=== PATIENT | male | born 1980 | race Caucasian/White ===

== ENCOUNTER 2020-06-19 08:22 | Emergency (ER) | payer SELFPAY ==
[2020-06-19 08:25] VITALS: BP 146/89; PULSE 95; RESP 95; TEMP 36.9; O2SAT 95
--- NOTE | 2020-06-19 08:45 | ED_ITS ---
HPI - Skin/Abscess/Foreign Bdy General Chief complaint: Skin/Abscess/Foreign Body Stated complaint: [place] on lip x7 days Time Seen by Provider: 06/19/20 08:31 Source: patient Mode of arrival: Ambulatory Limitations: no limitations History of Present Illness HPI narrative: Patient is a 40-year-old male here for evaluation of a lump hand painful area on his lower lip on the left side. He states that this incident has been there for the past couple days although he has had 2 prior incidences of pain in this area. He states that this is the worst 1. He has not been seen by Dental prior to this. He has no actual tooth pain. He states the 2nd time this happened did drain a green material. After the prior to times there was a lump in this area that was not painful. He does use occasional chewing tobacco but has not used this in greater than 6 months. He does not see a dentist on a regular basis. No fevers. No problems swallowing. Has not tried anything for symptoms prior to arrival. Related Data Home Medications Medication Instructions Recorded Confirmed HYDROCODONE/ACET 5/500 - 0 PO * [facility] DOSE/FREQUENCY #0 10/07/07 (Hydrocodon-Acetaminophen 5-500) IBUPROFEN (Motrin / Advil) 0 PO * UK DOSE/FREQUENCY #0 10/07/07 Previous Rx's Medication Instructions Recorded penicillin V potassium 500 mg PO QID 10 Days #40 tab 06/19/20 Review of Systems Constitutional Constitutional: Denies fatigue and Denies fever(s) ENT Comments: Pain left lower lip Cardiovascular Cardiovascular: Denies dyspnea Respiratory Respiratory: Denies cough and Denies dyspnea Integumentary/Breasts Skin/Breast: Denies lesions and Denies rash Neurologic Neurologic: Denies behavioral changes Psychiatric Psychiatric: Denies behavioral changes Endocrine Endocrine: Denies fatigue Hematologic/Lymphatic Hematologic/Lymphatic: Denies easy bleeding and Denies easy bruising Allergic/Immunologic Allergic/Immunologic: Denies urticaria Patient History Medical History Foreign body of right eye Social History Smoking Status: Current every day smoker Smoking Status: Current every day smoker alcohol intake frequency: 0-2 drinks per day Substance Use Type: marijuana Exam Initial Vital Signs Initial Vital Signs: Vital Signs Temperature 98.5 F 06/19/20 08:25 Pulse Rate 95 H 06/19/20 08:25 Respiratory Rate 95 H 06/19/20 08:25 Blood Pressure 146/89 H 06/19/20 08:25 Pulse Oximetry 95 06/19/20 08:25 Const General: cooperative, comfortable and well developed Limitations: mental status not altered HENMT Mouth: tongue normal, lip abnormal, No muffled voice and other (1 cm x 1 cm lump left lower lip) Teeth and gingiva: fair dentition Throat: no postnasal drainage and no uvular edema Skin Lesions: no lesions Rashes: no rashes Extrem General: capillary refill normal Psych Appearance: grossly normal and well kempt Course Orders Ordered: Discontinued Medications Prednisone (Prednisone 20 Mg Tablet) 40 mg PO NOW ONE Stop: 06/19/20 08:32 Last Admin: 06/19/20 08:33 Dose: Not Given Documented by: GREG Vital Signs Vital signs: Vital Signs - 8 hr 06/19/20 08:25 Temperature 98.5 F Pulse Rate 95 H Respiratory Rate 95 H Blood Pressure 146/89 H Pulse Oximetry 95 MDM - Skin/Abscess/Foreign Bdy MDM Narrative Medical decision making narrative: No respiratory distress. He does have a 1 cm x 1 cm mass on the left lower lip. Given his history of 2 prior episodes of this and the fact that there is a small nodule in this area when he is not having discomfort makes me somewhat concerned that this is a cyst and not an abscess. There is some redness around the area and the fact that it is extremely tender will start on antibiotics to see if this does not improve his symptoms. He was instructed that he needed contacted dental provider for most likely definitive treatment and removal of the cystic structure. He has no fevers. Can use Tylenol/ibuprofen for any discomfort. Discharge Plan Departure Patient Disposition: Home Clinical Impression: Lip cyst Activity Restrictions/Additional Instructions: [facility] [place]. I do recommend that you contact the [facility] dental providers in [place] as this most likely will need some sort of surgical treatment. You can take Tylenol and/or ibuprofen for any discomfort. Return to the emergency department for any new or worsening symptoms Prescriptions: New penicillin V potassium 500 mg tablet 500 mg PO QID 10 Days Qty: 40 RF: 0 No Action HYDROCODONE/ACET 5/500 - (Hydrocodon-Acetaminophen 5-500) 0 PO * UK DOSE/FREQUENCY Qty: 0 RF: 0 IBUPROFEN (Motrin / Advil) 0 PO * UK DOSE/FREQUENCY Qty: 0 RF: 0
== END 2020-06-19 08:58 | disposition home or self-care (01) ==
PROVIDERS: Emergency Provider Emergency Medicine
DX: K13.0 Diseases of lips (principal)
CPT/HCPCS: 99281

== ENCOUNTER 2021-06-02 09:19 | Emergency (ER) | payer OTHER, SELFPAY ==
[2021-06-02 09:31] VITALS: BP 169/88; PULSE 99; RESP 20; TEMP 36.2; O2SAT 94; BMI 23.0
[2021-06-02] MEDS: KETOROLAC 30 MG/ML VIAL IM (11:24)
[2021-06-02 11:54] VITALS: BP 163/85; PULSE 95; RESP 16; O2SAT 100
== END 2021-06-02 11:58 | disposition home or self-care (01) ==
PROVIDERS: Emergency Provider Emergency Medicine
DX: Z53.21 Procedure and treatment not carried out due to patient leaving prior to being seen by health care provider (principal); M54.16 Radiculopathy, lumbar region
CPT/HCPCS: 99283; J1885

== ENCOUNTER 2021-06-19 06:33 | Emergency (ER) | payer OTHER, SELFPAY ==
--- NOTE | 2021-06-19 06:56 | ED.BACK ---
HPI - Back Pain/Injury General Chief Complaint: Back Pain/Injury Stated Complaint: low back pain x3 days Time Seen by Provider: 06/19/21 06:47 History of Present Illness HPI Narrative: 41-year-old male daily smoker with long history of low back pain related to an L and I injury presents with increasing pain in his lower back with numbness and tingling in his left leg. It sometimes is hard for him to move any questions whether it is weak versus severely painful. He denies any recent trauma or injury. Denies any loss of control of bowel or bladder. He has no fever or chills and denies the use of blood thinners. He was seen and evaluated here about 2 weeks ago Related Data Previous Rx's Medication Instructions Recorded diazepam 5 mg tablet 5 mg PO TID PRN #14 tab 06/02/21 diazepam 5 mg tablet (Valium) 5 mg PO BID-QID PRN #10 tab 06/19/21 gabapentin 300 mg capsule 300 mg PO BEDTIME #14 cap 06/19/21 ketorolac 10 mg tablet 10 mg PO Q6H PRN #14 tab 06/19/21 methylprednisolone 4 mg tablets in See Rx Instructions .ROUTE 06/19/21 a dose pack (Medrol (Edson)) .COMPLEX #21 ea Allergies Allergy/AdvReac Type Severity Reaction Status Date / Time No Known Drug Allergies Allergy Verified 06/02/21 09:35 Patient History Medical History Foreign body of right eye Social History Smoking Status: Current every day smoker Smoking Status: Current every day smoker alcohol intake frequency: 0-2 drinks per day Substance Use Type: marijuana Exam Initial Vital Signs Initial Vital Signs: Vital Signs Temperature 98 F 06/19/21 07:10 Pulse Rate 94 H 06/19/21 07:10 Respiratory Rate 18 06/19/21 07:10 Blood Pressure 171/75 H 06/19/21 07:10 Pulse Oximetry 98 06/19/21 07:10 Course Orders Ordered: ED Orders 06/19/21 07:13 MR lumbar spine wo con Stat Discontinued Medications Gabapentin (Gabapentin 300 Mg Capsule) 300 mg PO NOW ONE Stop: 06/19/21 08:32 Ketorolac Tromethamine (Ketorolac 30 Mg/Ml Vial) 30 mg IM NOW ONE Stop: 06/19/21 07:42 Last Admin: 06/19/21 07:48 Dose: 30 mg Documented by: Prednisone (Prednisone 20 Mg Tablet) 40 mg PO NOW ONE Stop: 06/19/21 08:32 Vital Signs Vital signs: Vital Signs - 8 hr 06/19/21 07:10 Temperature 98 F Pulse Rate 94 H Respiratory Rate 18 Blood Pressure 171/75 H Pulse Oximetry 98 MDM - Back Pain/Injury Imaging Data Lumbar MRI: Radiologist's Impression: Launch?Image [address] [address] Magnetic Resonance Report Signed Patient: Dakota Nielsen MR#: [id number] : 1980 Acct:[id number] Age/Sex: 41 / M Date of Service: 06/19/21 Loc: ED Accession Number: [id number] ?? Procedure: MR lumbar spine wo con Ordering Provider: Rodger Naranjo D.O. PROCEDURE:? MR LUMBAR SPINE WO CON ? INDICATIONS:? severe pain, numbness, occasional leg weakness ? TECHNIQUE:? Noncontrast sagittal T1 spin echo and T2 fast echo, sagittal STIR, axial T1 and T2 fast spin echo through the lumbar spine.? In cases with scoliosis, additional coronal T2 fast spin echo may be performed.? ? COMPARISON:? [facility], MR, L-SPINE WITHOUT CONTRAST, 09/05/2007, 16:12. ? FINDINGS:? Image quality:? Excellent.? ? Alignment and Curvature:? No plain films are available for comparison, for numbering purposes.? Thus, for the purposes of this examination, 5 lumbar type vertebral bodies will be presumed, as denoted on the montage panel.? This should be confirmed and correlated with plain films, prior to any lumbar spinal intervention.? There is loss of normal lumbar lordosis.? Mild grade 1 retrolisthesis of L1 on L2 , L4 on L5, and L5 on S1. ? Bone Marrow:? Marrow is of normal overall signal.? No acute vertebral body compression fractures.? Mild reactive signal within the endplates adjacent to the T11-T12, T12-L1, L1-L2, L4-L5, and L5-S1 intervertebral discs. ? Spinal Cord:? Conus medullaris terminates at the L1-L2 disc space level.? Visualized cord demonstrates normal signal and size.? ? Paraspinous Soft Tissues:? No paravertebral masses.? ? T12-L1:? Severe disc height loss and desiccation.? Mild diffuse disc bulge.? Mild epidural lipomatosis.? Mild canal stenosis.? No foraminal stenosis.? No significant change. ? L1-L2:? Mild disc height loss and desiccation.? Mild diffuse disc bulge with superimposed left paracentral protrusion.? Mild facet and ligamentum flavum hypertrophy.? Mild epidural lipomatosis.? Increased, mild canal stenosis.? No foraminal stenosis. ? L2-L3:? Normal appearance.? ? L3-L4:? Normal appearance.? ? L4-L5:? Mild disc height loss and desiccation.? Mild diffuse disc bulge.? Mild facet and ligamentum flavum hypertrophy.? Mild epidural lipomatosis.? Mild canal stenosis.? Mild bilateral foraminal stenosis.? No significant change. ? L5-S1:? Mild disc height loss and desiccation.? Mild diffuse disc bulge with small superimposed right paracentral protrusion.? Mild canal stenosis.? Mild bilateral foraminal stenosis.? Disc protrusion abuts the right S1 nerve root within the lateral recess. ? ? IMPRESSION:? 1. Multilevel degenerative disc and facet disease, as well as ligamentum flavum hypertrophy and epidural lipomatosis. 2. Mild multilevel canal and foraminal stenosis. 3. L5-S1 disc protrusion abuts the right S1 nerve root within the lateral recess. Recommend correlation with clinical symptoms to ascertain relevance of this finding. 4. 5 lumbar type vertebral bodies were presumed for the current report.? Plain films of the lumbar spine are recommended for confirmation, prior to any lumbar spinal intervention. ? Dictated by: Carolee Del Rosario M.D. on 06/19/2021 at 8:13 ? ? Approved by: Carolee Del Rosario M.D. on 06/19/2021 at 8:17 ? Discharge Plan Departure Patient Disposition: Home Clinical Impression: Acute lumbar radiculopathy Instructions: DI for Lumbar Radiculopathy Activity Restrictions/Additional Instructions: *You have been diagnosed with [ Lumbar radiculopathy. There is an L5/S1 disc protrusion as noted on todays MRI which is pressing on your Right S1 nerve root] *What to do: *Please continue to take your regular medications as directed. [ x] New medication prescriptions sent to your pharmacy: [ [facility]] [ ] New medication written as a paper prescription [ ] No new medications given *Please follow up with your primary care provider in 2-3 days, call for an appointment. Let them know you were seen in the Emergency Department and that we ask that you be seen in follow up. We will electronically transmit a record of today's note if your PCP is in our system *If you do not have a primary care provider please contact the [facility] Resource line at [phone]. They will ask some questions about your medical history and help get you set up with a doctor in the community. *Return to Emergency Department if you should have any new, worsening or concerning symptoms, such as [fever greater than 101 F, shaking chills, worsening pain, persistent vomiting or other bothersome symptoms] Prescriptions: New ketorolac 10 mg tablet 10 mg PO Q6H PRN (Reason: pain) Qty: 14 0RF gabapentin 300 mg capsule 300 mg PO BEDTIME Qty: 14 0RF methylprednisolone [Medrol (Edson)] 4 mg tablets,dose pack See Rx Instructions .ROUTE .COMPLEX Qty: 21 0RF Rx Instructions: orally per package directions diazepam [Valium] 5 mg tablet 5 mg PO BID-QID PRN (Reason: muscle spasm) Qty: 10 0RF No Action diazepam 5 mg tablet 5 mg PO TID PRN (Reason: muscle spasm) Qty: 14 0RF Referrals: Isaiah Plascencia DO [Physician] - Jarett Armstrong MD [Physician] -
[2021-06-19 07:10] VITALS: BP 171/75; PULSE 94; RESP 18; TEMP 36.6; O2SAT 98
--- NOTE | 2021-06-19 07:13 | DI.MRI.S_ITS ---
PROCEDURE: MR LUMBAR SPINE WO CON INDICATIONS: severe pain, numbness, occasional leg weakness TECHNIQUE: Noncontrast sagittal T1 spin echo and T2 fast echo, sagittal STIR, axial T1 and T2 fast spin echo through the lumbar spine. In cases with scoliosis, additional coronal T2 fast spin echo may be performed. COMPARISON: [facility], , L-SPINE WITHOUT CONTRAST, 09/05/2007, 16:12. FINDINGS: Image quality: Excellent. Alignment and Curvature: No plain films are available for comparison, for numbering purposes. Thus, for the purposes of this examination, 5 lumbar type vertebral bodies will be presumed, as denoted on the montage panel. This should be confirmed and correlated with plain films, prior to any lumbar spinal intervention. There is loss of normal lumbar lordosis. Mild grade 1 retrolisthesis of L1 on L2 , L4 on L5, and L5 on S1. Bone Marrow: Marrow is of normal overall signal. No acute vertebral body compression fractures. Mild reactive signal within the endplates adjacent to the T11-T12, T12-L1, L1-L2, L4-L5, and L5-S1 intervertebral discs. Spinal Cord: Conus medullaris terminates at the L1-L2 disc space level. Visualized cord demonstrates normal signal and size. Paraspinous Soft Tissues: No paravertebral masses. T12-L1: Severe disc height loss and desiccation. Mild diffuse disc bulge. Mild epidural lipomatosis. Mild canal stenosis. No foraminal stenosis. No significant change. L1-L2: Mild disc height loss and desiccation. Mild diffuse disc bulge with superimposed left paracentral protrusion. Mild facet and ligamentum flavum hypertrophy. Mild epidural lipomatosis. Increased, mild canal stenosis. No foraminal stenosis. L2-L3: Normal appearance. L3-L4: Normal appearance. L4-L5: Mild disc height loss and desiccation. Mild diffuse disc bulge. Mild facet and ligamentum flavum hypertrophy. Mild epidural lipomatosis. Mild canal stenosis. Mild bilateral foraminal stenosis. No significant change. L5-S1: Mild disc height loss and desiccation. Mild diffuse disc bulge with small superimposed right paracentral protrusion. Mild canal stenosis. Mild bilateral foraminal stenosis. Disc protrusion abuts the right S1 nerve root within the lateral recess. IMPRESSION: 1. Multilevel degenerative disc and facet disease, as well as ligamentum flavum hypertrophy and epidural lipomatosis. 2. Mild multilevel canal and foraminal stenosis. 3. L5-S1 disc protrusion abuts the right S1 nerve root within the lateral recess. Recommend correlation with clinical symptoms to ascertain relevance of this finding. 4. 5 lumbar type vertebral bodies were presumed for the current report. Plain films of the lumbar spine are recommended for confirmation, prior to any lumbar spinal intervention. Dictated by: Carolee Del Rosario M.D. on 06/19/2021 at 8:13 Approved by: Carolee Del Rosario M.D. on 06/19/2021 at 8:17
[2021-06-19] MEDS: KETOROLAC 30 MG/ML VIAL IM (07:48)
[2021-06-19] MEDS: predniSONE 20 MG TABLET 40 MG PO (08:56)
[2021-06-19] MEDS: GABAPENTIN 300 MG CAPSULE PO (08:56)
[2021-06-19 09:22] VITALS: BP 137/84; PULSE 78; RESP 16; O2SAT 98
--- NOTE | 2021-07-10 01:53 | ED_ITS ---
HPI - Back Pain/Injury General Chief Complaint: Back Pain/Injury Stated Complaint: low back pain x3 days Time Seen by Provider: 06/19/21 06:47 Source: patient Related Data Previous Rx's Medication Instructions Recorded diazepam 5 mg tablet 5 mg PO TID PRN #14 tab 06/02/21 diazepam 5 mg tablet (Valium) 5 mg PO BID-QID PRN #10 tab 06/19/21 gabapentin 300 mg capsule 300 mg PO BEDTIME #14 cap 06/19/21 ketorolac 10 mg tablet 10 mg PO Q6H PRN #14 tab 06/19/21 methylprednisolone 4 mg tablets in See Rx Instructions .ROUTE 06/19/21 a dose pack (Medrol (Edson)) .COMPLEX #21 ea Allergies Allergy/AdvReac Type Severity Reaction Status Date / Time No Known Drug Allergies Allergy Verified 06/02/21 09:35 Patient History Medical History Foreign body of right eye Social History Smoking Status: Current every day smoker Smoking Status: Current every day smoker alcohol intake frequency: 0-2 drinks per day Substance Use Type: marijuana Exam Initial Vital Signs Initial Vital Signs: Vital Signs Temperature 98 F 06/19/21 07:10 Pulse Rate 94 H 06/19/21 07:10 Respiratory Rate 18 06/19/21 07:10 Blood Pressure 171/75 H 06/19/21 07:10 Pulse Oximetry 98 06/19/21 07:10 Course Orders Ordered: Discontinued Medications Gabapentin (Gabapentin 300 Mg Capsule) 300 mg PO NOW ONE Stop: 06/19/21 08:32 Last Admin: 06/19/21 08:56 Dose: 300 mg Documented by: RADHA Ketorolac Tromethamine (Ketorolac 30 Mg/Ml Vial) 30 mg IM NOW ONE Stop: 06/19/21 07:42 Last Admin: 06/19/21 07:48 Dose: 30 mg Documented by: ERICK Prednisone (Prednisone 20 Mg Tablet) 40 mg PO NOW ONE Stop: 06/19/21 08:32 Last Admin: 06/19/21 08:56 Dose: 40 mg Documented by: RADHA Discharge Plan Departure Patient Disposition: Home Clinical Impression: Acute lumbar radiculopathy Instructions: DI for Lumbar Radiculopathy Activity Restrictions/Additional Instructions: *You have been diagnosed with [ Lumbar radiculopathy. There is an L5/S1 disc protrusion as noted on todays MRI which is pressing on your Right S1 nerve root] *What to do: *Please continue to take your regular medications as directed. [ x] New medication prescriptions sent to your pharmacy: [ [facility]] [ ] New medication written as a paper prescription [ ] No new medications given *Please follow up with your primary care provider in 2-3 days, call for an appointment. Let them know you were seen in the Emergency Department and that we ask that you be seen in follow up. We will electronically transmit a record of today's note if your PCP is in our system *If you do not have a primary care provider please contact the [facility] Resource line at [phone]. They will ask some questions about your medical history and help get you set up with a doctor in the community. *Return to Emergency Department if you should have any new, worsening or concerning symptoms, such as [fever greater than 101 F, shaking chills, worsening pain, persistent vomiting or other bothersome symptoms] Prescriptions: New ketorolac 10 mg tablet 10 mg PO Q6H PRN (Reason: pain) Qty: 14 0RF gabapentin 300 mg capsule 300 mg PO BEDTIME Qty: 14 0RF methylprednisolone [Medrol (Edson)] 4 mg tablets,dose pack See Rx Instructions .ROUTE .COMPLEX Qty: 21 0RF Rx Instructions: orally per package directions diazepam [Valium] 5 mg tablet 5 mg PO BID-QID PRN (Reason: muscle spasm) Qty: 10 0RF No Action diazepam 5 mg tablet 5 mg PO TID PRN (Reason: muscle spasm) Qty: 14 0RF Referrals: Isaiah Plascencia DO [Physician] - Jarett Armstrong MD [Physician] -
== END 2021-06-19 09:25 | disposition home or self-care (01) ==
PROVIDERS: Emergency Provider Emergency Medicine
DX: M54.16 Radiculopathy, lumbar region (principal); F17.200 Nicotine dependence, unspecified, uncomplicated
CPT/HCPCS: 72148; 96372; 99284; J1885

== ENCOUNTER → 2021-09-24 14:52 | Outpatient (CLI) | payer OTHER, SELFPAY ==
--- NOTE | 2021-09-24 14:57 | DI.RAD.S_ITS ---
PROCEDURE: XR LUMBAR SPINE MIN 4V INDICATIONS: BACK PAIN TECHNIQUE: 5 views of the lumbar spine were acquired, including bilateral oblique views. COMPARISON: None. FINDINGS: Bones: 5 nonrib-bearing vertebrae are present. There is normal bony alignment. No vertebral body compression fractures. No suspicious bony lesions. Mild degenerative disc changes noted throughout the lumbar spine. Soft tissues: Overlying bowel gas pattern is normal. No suspicious soft tissue calcifications. Oblique images: No pars defects. IMPRESSION: 1. Multilevel degenerative disc disease. 2. No fracture. No acute osseous lesion. If symptoms and/or clinical suspicion for pathology persists, evaluation with MRI should be considered for further assessment. Dictated by: Cherie Bowen MD, PhD on 09/24/2021 at 16:22 Approved by: Cherie Bowen MD, PhD on 09/24/2021 at 16:23
== END ==
PROVIDERS: PCP Family Medicine; Referring Provider Physical Medicine & Rehabilitation; Visit Provider Physical Medicine & Rehabilitation
DX: M51.36 Other intervertebral disc degeneration, lumbar region (principal)
CPT/HCPCS: 72110

== ENCOUNTER → 2021-10-13 12:59 | Outpatient (CLI) | payer OTHER, SELFPAY ==
[2021-10-13 13:39] LABS: COVID19 -Nasal RAPID Negative (Negative)
== END ==
PROVIDERS: PCP Family Medicine; Visit Provider Physical Medicine & Rehabilitation
DX: Z20.822 Contact with and (suspected) exposure to COVID-19 (principal)
CPT/HCPCS: 87635; C9803

== ENCOUNTER 2021-10-14 13:49 | Outpatient (CLI) | payer OTHER, SELFPAY ==
[2021-10-14] VITALS (7 sets, daily range): BP systolic 108–150; BP diastolic 58–92; PULSE 79–99; RESP 12–22; TEMP 36.9; O2SAT 92–98
--- NOTE | 2021-10-14 13:51 | DI.RAD.S_ITS ---
PROCEDURE: PAIN L/S TRANSFORAMINAL INJECT INDICATIONS: SPONDYLOSIS COMPARISON: [facility], MR, MR LUMBAR SPINE WO CON, 06/19/2021, 7:50. [facility], CR, XR LUMBAR SPINE MIN 4V, 09/24/2021, 14:46. FINDINGS: Fluoroscopic spot filming was performed to verify placement of a spinal needle at the L5-S1 level, as labeled on the films. Appropriate location of the needle tip was confirmed by injection of iodinated contrast. IMPRESSION: No significant intraprocedural abnormality. Dictated by: Oskar Felix M.D. on 10/14/2021 at 14:26 Approved by: Oskar Felix M.D. on 10/14/2021 at 14:26
[2021-10-14] MEDS: MIDAZOLAM 2 MG/2 ML VIAL IV (14:53)
[2021-10-14] MEDS: BUPIVACAINE 0.25% (PF) VIAL 2 ML INJ (14:57)
[2021-10-14] MEDS: BETAMETHASONE 30 MG/5 ML MDV 6 MG INJ (14:57)
[2021-10-14] MEDS: IOPAMIDOL 15 ML VIAL 3 ML INJ (14:57)
[2021-10-14] MEDS: DEXAMETHASONE 10 MG/ML VIAL 20 MG INJ (14:58)
--- NOTE | 2021-10-14 15:05 | P.PCN_ITS ---
Date/Time/Diagnoses Date of procedure: 10/14/21 Time of procedure: 15:05 Pre-procedure diagnosis: FORAMINAL STENOSIS WITH LE SYMPTOMS Post-procedure diagnosis: same Procedure Notes Procedure: 1. FLUOROSCOPICALLY GUIDED CONTRAST CONTROLLED TRANSFORAMINAL EPIDURAL STEROID INJECTION - RIGHT L5/S1 TFESI Indications: Dakota is referred by Dr. Hess for treatment of Foraminal Stenosis with Right LE Symptoms Physician: Isaiah Plascencia Total Fluoroscopy time (seconds): 8 Total sedation minutes: 9 Complications: none Procedure in detail & Post-procedure care: FINDINGS Foraminal Nerve Root Compression secondary to disc disease and facet hypertrophy DESCRIPTION OF PROCEDURE Following review of allergy and review of potential side effects and complications, including, but not necessarily limited to, infection, allergic reaction, local tissue breakdown, stroke, temporary or permanent nerve injury, paralysis, and possible , the patient indicated that the patient understood and agreed to proceed. An informed consent document was signed by the patient, witnessed by a nurse, and placed in the patient's chart. Additionally, other treatment options including medications, modalities, and physical therapy were reviewed with the patient. After review of previous anaesthesic history and IV conscious sedation the patient was deemed safe to proceed with today?s procedure with IV conscious sedation as ASA class II designation. Safety time-out was performed to confirm patient ID, procedure to be performed and site of procedure. IV sedation was accomplished with a combination of 4mg of Versed was administered by the RN after DO order, titrated to patient comfort during the course of the procedure while the patient remained responsive to all verbal commands In the prone position following sterile prep and drape of the lumbar region, the right L5/S1 posterior neuroforamen was identified fluoroscopically. The skin was anesthetized via a 25-gauge 1.5-inch needle with 1% lidocaine solution. At this point, a 25-gauge 3.5-inch spinal needle was atraumatically introduced and advanced under fluoroscopic guidance through the posterior right L5/S1 neuroforamen to approximately the anterior aspect of the canal. Depth was confirmed on lateral view. Following negative aspiration, injection of approximately 1.5cc of Isovue 200 under live fluoroscopy in the AP view confirmed excellent flow along the nerve root, into the epidural space without vascular or intrathecal uptake observed Radiological data, including multiple fluoroscopic views of the lumbosacral spine, reveal a spinal needle at the right L5/S1 posterior neuroforamen. Subsequent views show flow of contrast material flowing superiorly and inferiorly along the nerve root confirming epidural flow. Subsequently, a test dose of 1.5 cc of 1% lidocaine solution was administered and patient was observed for two minutes for signs or symptoms of complications, including abdominal pain, shortness of breath, bilateral upper or lower extremi ty weakness, nausea and vomiting, prior to steroid injection. At this point, a total of 3cc or 20mg of dexamethasone and 6mg of betamethasone was injected without incident. The procedure tolerated the procedure well without signs or symptoms of complications prior to transfer to the recovery area continued monitoring without incident. The patient was then transferred to the recovery area where they were observed for an appropriate time after the injection. The patient reported a VAS score of 7 prior to the procedure and a post- procedure VAS of 0. POST OP INSTRUCTIONS The patient was provided a Pain Log to continue to record their response to the target-specific procedure prior to follow-up visit with their referring physician. Additionally, specific post-injection care instructions and a contact number to our office were provided if concerns arise regarding possible complications associated with the procedure are suspected.
--- NOTE | 2021-10-14 15:52 | PC.NURSE ---
Patient asked about restrictions for work, per Dr Plascencia referred patient back to the green pain log for his instructions.
== END 2021-10-14 15:45 | disposition home or self-care (01) ==
LOC: RAD 13:51
PROVIDERS: PCP Family Medicine; Referring Provider Physical Medicine & Rehabilitation; Visit Provider Physical Medicine & Rehabilitation
DX: M48.07 Spinal stenosis, lumbosacral region (principal); M51.17 Intervertebral disc disorders with radiculopathy, lumbosacral region
CPT/HCPCS: 64483; J0702; J1100; J2250

== ENCOUNTER 2022-01-12 10:56 | Emergency (ER) | payer OTHER, SELFPAY ==
[2022-01-12 11:07] VITALS: BP 143/72; PULSE 80; RESP 18; TEMP 36.3; O2SAT 97; BMI 22.3
--- NOTE | 2022-01-12 11:12 | DI.RAD.S_ITS ---
PROCEDURE: XR ANKLE RT MIN 3V INDICATIONS: fall one week ago, limping, pain, bruising TECHNIQUE: 3 views of the ankle were acquired. COMPARISON: None. FINDINGS: Bones: No fractures or dislocations. Ankle mortise is normally aligned. No suspicious bony lesions. Lucency in the distal fibula is most likely caused by an intra osseous cyst. Soft tissues: Suspect small tibiotalar joint effusion. Achilles tendon appears normal. IMPRESSION: 1. No acute osseous abnormalities. Small tibiotalar joint effusion is suspected. If clinical symptoms persist or clinical suspicion for pathology is high, a repeat examination in 7-10 days, or advanced imaging such as CT or MRI is suggested for further evaluation. 2. Suspect intra osseous cyst in distal fibula. Dictated by: Chiqui Antonio M.D. on 01/12/2022 at 12:22 Approved by: Chiqui Antonio M.D. on 01/12/2022 at 12:23
--- NOTE | 2022-01-12 12:07 | ED_ITS ---
HPI - Extremity Injury (Lower) <PRIMO Jones - Last Filed: 01/12/22 12:32> General Chief Complaint: Extremity Injury, Lower Stated Complaint: Fall off of work truck- twisted right ankle Time Seen by Provider: 01/12/22 12:01 Source: patient Mode of arrival: Ambulatory History of Present Illness HPI Narrative: 41-year-old male, daily smoker, presents to the emergency department with right ankle pain after rolling his ankle while at work on a 2.5 ton truck. Patient reports that he stepped off and rolled his ankle. Patient did apply ice and elevate sporadically. Patient is only taking a couple doses of ibuprofen in the last week. Patient is able to stand with minimal discomfort. L&I. Related Data Home Medications Medication Instructions Recorded Confirmed cyclobenzaprine 10 mg tablet 10 mg PO BEDTIME PRN 09/24/21 09/24/21 Previous Rx's Medication Instructions Recorded celecoxib 200 mg capsule (Celebrex) 200 mg PO DAILY #30 caps 09/24/21 gabapentin 300 mg capsule 300 mg PO .COMPLEX #90 caps 09/24/21 diazepam 5 mg tablet (Valium) 5 mg PO BID-QID PRN muscle spasm 10/13/21 #10 tabs Allergies Allergy/AdvReac Type Severity Reaction Status Date / Time No Known Drug Allergies Allergy Verified 01/12/22 11:11 Review of Systems <PRIMO Jones - Last Filed: 01/12/22 12:32> Review of Systems Narrative: Narrative: GENERAL: Denies chills, fatigue, fever, sweats. See HPI HEENT: Denies sinus pain, ear pain, sore throat, difficulty swallowing, dizziness. RESPIRATORY: Denies dyspnea, cough, wheezing, sputum. CARDIOVASCULAR: Denies chest pain, palpitations, edema. GASTROINTESTINAL: Denies nausea, vomiting, abdominal pain, diarrhea, constipation. : Denies dysuria, frequency, incontinence, hematuria, urinary retention, flan k pain. MSK: Denies weakness, joint pain. Palpable pain distal to right lateral malleolus. SKIN: Denies rash, skin lesions, or pruritis. Endorses mild swelling to right lateral ankle. NEUROLOGIC: Denies weakness, dizziness, headache, numbness, confusion. PSYCHIATRIC: No concerning psychosocial issues. Patient History <PRIMO Jones - Last Filed: 01/12/22 12:32> Medical History Facet arthropathy, lumbar Foreign body of right eye Herniated nucleus pulposus, L1-2 left Herniated nucleus pulposus, L5-S1, right Social History Smoking Status: Current every day smoker Smoking Status: Current every day smoker alcohol intake frequency: 0-2 drinks per day Substance Use Type: marijuana Exam <PRIMO Jones - Last Filed: 01/12/22 12:32> Narrative Exam Narrative: Exam Narrative: GENERAL: This is a well-nourished, well-developed patient, in no acute distress HEAD: Atraumatic. Normocephalic. MSK: Moves all extremities. Normal range of motion, no clubbing or edema. Neurovascularly intact. NEURO: A&O x 3. SKIN: Warm, dry, no rashes or lesions noted. Initial Vital Signs Initial Vital Signs: Vital Signs Temperature 97.3 F L 01/12/22 11:07 Pulse Rate 80 01/12/22 11:07 Respiratory Rate 18 01/12/22 11:07 Blood Pressure 143/72 H 01/12/22 11:07 Pulse Oximetry 97 01/12/22 11:07 Oxygen Delivery Method 01/12/22 11:07 Extrem Other: ANKLE: There is mild bruising, swelling but no asymmetry. There is no tenderness to general palpation. Sensation grossly intact. There is no tenderness over the medial, lateral malleolus, proximal tibia/fibula. The anterior mortise is non-tender. Flexion and extension is intact. Unable to test for stability or laxity due to pain. The contralateral ankle exam is unremarkable. <Yu Camp DO - Last Filed: 01/14/22 09:44> Initial Vital Signs Initial Vital Signs: Vital Signs Temperature 97.3 F L 01/12/22 11:07 Pulse Rate 80 01/12/22 11:07 Respiratory Rate 18 01/12/22 11:07 Blood Pressure 143/72 H 01/12/22 11:07 Pulse Oximetry 97 01/12/22 11:07 Oxygen Delivery Method 01/12/22 11:07 Course <PRIMO Jones - Last Filed: 01/12/22 12:32> Orders Ordered: ED Orders 08/15/22 11:12 XR ankle RT min 3V Stat Vital Signs Vital signs: Vital Signs - 8 hr 01/12/22 11:07 Temperature 97.3 F L Pulse Rate 80 Respiratory Rate 18 Blood Pressure 143/72 H Pulse Oximetry 97 Oxygen Delivery Method Room Air <Yu Camp DO - Last Filed: 01/14/22 09:44> Orders Ordered: ED Orders 01/12/22 11:12 XR ankle RT min 3V Stat Vital Signs Vital signs: Vital Signs - 8 hr 01/12/22 11:07 Temperature 97.3 F L Pulse Rate 80 Respiratory Rate 18 Blood Pressure 143/72 H Pulse Oximetry 97 Oxygen Delivery Method Room Air MDM - Extremity Injury (Lower) <PRIMO Jones - Last Filed: 01/12/22 12:32> Differential Diagnosis Differential diagnosis: Likely ankle sprain and strain Imaging Data Extremity x-ray #1: My Impression: Normal ankle. Radiologist's Impression: [address] [id number] ReportSigned Patient: Dakota Nielsen CMR#: [id number]: [id number]:[id number]/Sex: 41 / MDate of Service: 01/12/22Loc: EDAccession Number: [id number] Procedure: XR ankle RT min 3V Ordering Provider: Yu Camp D.O. PROCEDURE: XR ANKLE RT MIN 3V INDICATIONS: fall one week ago, limping, pain, bruising TECHNIQUE: 3 views of the ankle were acquired. COMPARISON: None. FINDINGS: Bones: No fractures or dislocations. Ankle mortise is normally aligned. No suspicious bony lesions. Lucency in the distal fibula is most likely caused by an intra osseous cyst. Soft tissues: Suspect small tibiotalar joint effusion. Achilles tendon appears normal. IMPRESSION: 1. No acute osseous abnormalities. Small tibiotalar joint effusion is suspected. If clinical symptoms persist or clinical suspicion for pathology is high, a repeat examination in 7-10 days, or advanced imaging such as CT or MRI is suggested for further evaluation. 2. Suspect intra osseous cyst in distal fibula. Dictated by: Chiqui Antonio M.D. on 01/12/2022 at 12:22 Approved by: Chiqui Antonio M.D. on 01/12/2022 at 12:23 MDM Narrative Medical decision making narrative: 41-year-old male that presents emergency department with right ankle pain. X- ray is negative for fracture. Recommended rice and NSAIDs. L&I paperwork completed. Instructed patient to follow up with family doctor if symptoms persist over the next 2 weeks. Discussed plan of care and return precautions with patient, who was agreeable to course of action. Discharge Plan Departure Patient Disposition: Home Clinical Impression: Right ankle sprain Instructions: DI for Ankle Sprain Activity Restrictions/Additional Instructions: *You have been diagnosed with right ankle sprain. Your x-ray was. If the radiologist report reveals anything different from a we discussed, I will contact you on your phone. As we discussed: Rest (modified activity), along with ice, compression wrap/splint-immobilize as directed and elevation above heart. Tylenol or Ibuprofen for discomfort. You may take ibuprofen 600 mg 3 darrell es a day with food for the next 3-5 days to help reduce inflammation and pain. Please follow-up with your family doctor if symptoms do not improve over the next 2 weeks. I have completed your L&I paperwork. *What to do: *Please continue to take your regular medications as directed. [ ] New medication prescriptions sent to your pharmacy: [ ] [ ] New medication written as a paper prescription [x ] No new medications given *Please follow up with your primary care provider in 2-3 days, call for an appointment. Let them know you were seen in the Emergency Department and that we ask that you be seen in follow up. We will electronically transmit a record of today's note if your PCP is in our system *If you do not have a primary care provider please contact the [facility] Resource line at [phone]. They will ask some questions about your medical history and help get you set up with a doctor in the community. ? Return to ER if you should have any new, worsening or concerning symptoms, such as worsening pain, severe headache, confusion, chest pain, difficulty breathing, fever greater than 101 F, shaking chills, persistent vomiting to the point that you cannot drink fluids, or other new or worsening symptoms. Prescriptions: No Action diazepam [Valium] 5 mg tablet 5 mg PO BID-QID PRN (Reason: muscle spasm) Qty: 10 0RF cyclobenzaprine 10 mg tablet 10 mg PO BEDTIME PRN gabapentin 300 mg capsule 300 mg PO .COMPLEX Qty: 90 2RF Rx Instructions: 1-2 PO Tid to begin at HS and titrate to pain relief celecoxib [Celebrex] 200 mg capsule 200 mg PO DAILY Qty: 30 2RF Referrals: Maury Hess MD [Primary Care Provider] - Stand Alone Forms: Work Release Note Visit Report Forms: Patient Portal/API <Yu Camp DO - Last Filed: 01/14/22 09:44> Cosign ED Attending Joeature Attestation: I was immediately available in the department for consultation. Documentation has been reviewed. I agree with assessment and plan.
== END 2022-01-12 12:30 | disposition home or self-care (01) ==
PROVIDERS: Emergency Provider Registered Nurse; PCP Family Medicine
DX: S93.401A Sprain of unspecified ligament of right ankle, initial encounter (principal); X50.1XXA Overexertion from prolonged static or awkward postures, initial encounter; Y99.0 Civilian activity done for income or pay
CPT/HCPCS: 73610; 99283

== ENCOUNTER → 2025-05-13 09:24 | Outpatient (CLI) | payer OTHER, SELFPAY ==
--- NOTE | 2025-05-13 09:28 | DI.MRI.S_ITS ---
PROCEDURE: MR LUMBAR SPINE WO CON INDICATIONS: lumbar foraminal stenosis TECHNIQUE: Noncontrast sagittal T1 spin echo and T2 fast echo, sagittal STIR, and T2 fast spin echo through the lumbar spine. In cases with scoliosis, additional coronal T2 fast spin echo may be performed. COMPARISON: [facility], MR, MR LUMBAR SPINE WO CON, 06/19/2021, 7:50. FINDINGS: Image quality: Excellent. Alignment and Curvature: Straightening of the normal lumbar lordosis. Minimal levocurvature. Bone Marrow: Mild reactive endplate change. Marrow is of normal overall signal. No acute vertebral body compression fractures. Spinal Cord: Conus medullaris terminates at the L1-L2 level. Visualized cord demonstrates normal signal and size. Paraspinous Soft Tissues: No paravertebral masses. T12-L1: Disc desiccation and severe height loss. Facet arthropathy. No central canal or neural foraminal stenosis. L1-L2: Disc desiccation and diffuse disc bulge with superimposed disc extrusion which is mildly decreased in size compared to prior. Facet arthropathy. Mild central canal stenosis. No neural foraminal stenosis. Stable compared to prior. L2-L3: Normal appearance. L3-L4: Facet arthropathy. No central canal or neural foraminal stenosis. L4-L5: Disc desiccation and diffuse disc bulge. Facet arthropathy. Mild central canal stenosis. Mild bilateral neural foraminal stenosis. Stable compared to prior. L5-S1: Disc desiccation and moderate height loss. Mild diffuse disc bulge with superimposed right paracentral disc protrusion. Mild central canal stenosis. Mild bilateral neural foraminal stenosis. Stable compared to prior. IMPRESSION: 1. Degenerative changes of the lumbar spine are similar appearance compared to prior. 2. Mild multilevel central canal and neural foraminal stenosis. Dictated by: Pacheco Steinberg M.D. on 05/14/2025 at 10:35 Approved by: Pacheco Steinberg M.D. on 05/14/2025 at 10:48
== END ==
LOC: MRI 09:26
PROVIDERS: Referring Provider Acupuncturist; Visit Provider Acupuncturist
DX: M48.061 Spinal stenosis, lumbar region without neurogenic claudication (principal); M48.07 Spinal stenosis, lumbosacral region; M47.816 Spondylosis without myelopathy or radiculopathy, lumbar region
CPT/HCPCS: 72148